=== PATIENT | female | born 1990 ===

== ENCOUNTER → 2022-09-02 | Outpatient (CLI) | payer OTHER ==
[2022-09-03 13:39] LABS: Candida species (DNA Probe) Negative (NEGATIVE); G. vaginalis (DNA Probe) Positive (NEGATIVE); T. vaginalis (DNA Probe) Negative (NEGATIVE)
[2022-09-04 03:37] LABS: CHLAMYDIA TRACHOMATIS, NAA Negative (Negative)
== END | disposition home or self-care (01) ==
LOC: LAB SHORT 15:38 → LAB 15:38
PROVIDERS: Obstetrics & Gynecology
DX: N76.0 Acute vaginitis (principal)
CPT/HCPCS: 87480; 87491; 87510; 87591; 87660

== ENCOUNTER 2023-08-03 10:46 | Day surgery (SDC) | payer OTHER ==
[~2023-08-03] VITALS: Ht 162.6 cm; Wt 67.9 kg
[~2023-08-03 10:46] MED LIST: Ropivacaine 0.5% HCl/Pf 5 MG/ML 20ML VIAL ONE
[2023-08-03] MEDS ORDERED: Lactated Ringer's 1,000 ML IV ONE (11:31)
[2023-08-03] MEDS ORDERED: IBUP200 PO (11:33)
[2023-08-03] MEDS ORDERED: Midazolam HCl 1MG / ML 2ML Vial ONE (11:53)
[2023-08-03] MEDS ORDERED: propofoL 40 ML IV ONE (12:04)
[2023-08-03] MEDS ORDERED: FentaNYL Citrate 50 MCG/ML 2 ML Injection ONE ×2 (12:05→12:30)
[2023-08-03] MEDS ORDERED: EPINEPhrine HCl 1 MG/ML 1ML Amp XX ONE (12:27)
--- NOTE | 2023-08-03 12:31 | NUR ---
08/03/23 1231 Guillermina Lucia ABDOMEN PREPPED W/ DURAPREP, CURT AREA PREPPED W/ BETADINE SOLUTION BY [email or web address]
[2023-08-03] MEDS ORDERED: Ondansetron HCl 2 MG / ML 2ML Vial ONE (12:45)
[2023-08-03] MEDS ORDERED: Dexamethasone Sod Phos 10 MG/ML 1ML VIAL ONE (12:45)
[2023-08-03] MEDS ORDERED: Metoclopramide HCl 5MG / ML 2ML Vial ONE (12:45)
[2023-08-03] MEDS ORDERED: Sugammadex Sodium 200 MG/2ML SDV (100 MG/ML) ONE (12:50)
[2023-08-03 13:27] VITALS: BP 127/84
== END 2023-08-03 14:02 | disposition home or self-care (01) ==
LOC: ORSCSDS 10:46
PROVIDERS: Obstetrics & Gynecology
PROC: 0UT74ZZ Resection of Bilateral Fallopian Tubes, Percutaneous Endoscopic Approach (ICD-10-PCS; principal; 2023-08-03 12:00)
DX: Z30.2 Encounter for sterilization (principal); F17.210 Nicotine dependence, cigarettes, uncomplicated
CPT/HCPCS: 88302; J0171; J1100; J2250; J2405; J2704; J2765; J2795; J3010; J7120